=== PATIENT | female | born 1980 | race Caucasian/White ===

== ENCOUNTER 2023-02-19 09:02 | Emergency (ER) | payer SELFPAY ==
--- NOTE | 2023-02-19 09:03 | ED.URI ---
HPI - URI/Sore Throat General Chief Complaint: Upper Respiratory Infection Stated Complaint: Sinus Time Seen by Provider: 02/19/23 09:03 Source: patient Mode of arrival: ambulatory Limitations: no limitations History of Present Illness HPI Narrative: Madisyn is a 43-year-old female patient presenting to the clinic today with complaints of sinus congestion and cough x3 days. No known fever or chills. MD elicited complaint: sore throat and nasal congestion Related Data Allergies Allergy/AdvReac Type Severity Reaction Status Date / Time No Known Allergies Allergy Verified 02/19/23 09:14 Review of Systems Review of Systems: Pertinent positives per HPI. Patient denies any fever, chills, rash, headache, visual changes, dizziness, shortness of breath, chest pain, palpitations, nausea, vomiting, diarrhea, constipation, abdominal pain, or any urinary issues. PMFSH Comments At the time of my signature, I reviewed and agree with the nursing past medical, surgical, social, and family history. There is no relevant family history pertinent to the patient complaint. Exam Narrative: General: Well-developed, well nourished, in no apparent distress Head: Normocephalic, atraumatic Eyes: Pupils equally round and reactive to light bilaterally, EOM intact, sclera and conjunctive clear, no discharge, lids normal Ears: TMs intact and clear, ear canals clear, no drainage, grossly hearing normal. Nose: Nares patent, no discharge, no inflammation, no sinus tenderness. Mouth: Oral pharynx without lesions or masses, good dentition, MMM. Neck: Supple, trachea midline, no enlargement of anterior or posterior cervical nodes, no thyroid masses or goiter palpable. Cardio: Regular rate and rhythm, s1 and s2 normal, no murmur appreciated. Resp: Clear to auscultation bilaterally, no rhonchi, rales, wheezing or rubs Course Course Emergency Course: Portions of this record may have been created with voice recognition software. Level of Care: Express Care Visit Vital Signs Vital signs: Vital Signs Temperature 37.1 C 02/19/23 09:16 Pulse Rate 69 02/19/23 09:16 Respiratory Rate 16 02/19/23 09:16 Blood Pressure 148/80 H 02/19/23 09:16 Pulse Oximetry 100 02/19/23 09:16 Oxygen Delivery Room Air 02/19/23 09:16 Temperature 37.1 C 02/19/23 09:16 Pulse Rate 69 02/19/23 09:16 Respiratory Rate 16 02/19/23 09:16 Blood Pressure 148/80 H 02/19/23 09:16 Pulse Oximetry 100 02/19/23 09:16 Oxygen Delivery Room Air 02/19/23 09:16 Vital signs reviewed MDM - URI/Sore Throat MDM Narrative Medical decision making narrative: At the time of visit patient is resting comfortably on the exam table. Patient has had possible exposure to COVID. COVID test was completed and was negative in the clinic today. I suspect patient has URI/serous otitis. Prescription for prednisone was sent to the pharmacy and supportive measures were discussed with the patient she voiced understanding of discharge instructions agrees to treatment plan. Differential Diagnosis Differential diagnosis: Likely upper respiratory infection, otitis media, sinusitis, viral infection, bronchitis, influenza, pharyngitis and other (COVID) Lab Data Labs: Lab Results 02/19/23 Range/Units 09:10 POC SARS CoV-2 Ag Negative (Negative) Discharge Plan Discharge Clinical Impression: Acute serous otitis media of right ear without rupture, Acute upper respiratory infection Patient Disposition: Home, Self-Care Condition: Stable Instructions: Antibiotic Form, Upper Respiratory Infection (ED), Fluid In The Ear (Serous Otitis Media) (ED) Additional Instructions: Covid testing was negative in the clinic today. Take prescription medications only as prescribed-prednisone Increase fluids and stay well hydrated Tylenol/motrin for pain/fever Flonase and OTC antihistamines as directed Vicks vapor rub to open sinuses Sinu
[2023-02-19 09:16] VITALS: BP 148/80; PULSE 69; RESP 16; TEMP 37.1; O2SAT 100
== END 2023-02-19 09:45 | disposition home or self-care (01) ==
LOC: EXPCOLL 09:10
PROVIDERS: Emergency Provider Nurse Practitioner Family
DX: H65.01 Acute serous otitis media, right ear (principal); J06.9 Acute upper respiratory infection, unspecified; Z20.822 Contact with and (suspected) exposure to COVID-19
CPT/HCPCS: 87426; 99213; C9803; G0463